=== PATIENT | male | born 1975 | race Caucasian/White ===

== ENCOUNTER 2019-03-20 11:19 | Emergency (ER) | payer MEDICAID ==
[2019-03-20] MEDS: LIDOCAINE 1% (MDV) 20 ML INJ SC (12:18)
[2019-03-20] MEDS: DIPHTH/TET/ACEL PERTUSS (ADULT) 0.5 ML VIAL IM* (12:19)
[2019-03-20] MEDS: KETOROLAC 60 MG INJ IM (12:32)
[2019-03-20] MEDS: BACITRACIN 0.5%/ZINC 28.35 GM OINT TOP (14:31)
== END 2019-03-20 14:35 | disposition home or self-care (01) ==
LOC: FTE 14:35
DX: S61.412A Laceration without foreign body of left hand, initial encounter (principal); W26.8XXA Contact with other sharp object(s), not elsewhere classified, initial encounter; Y92.9 Unspecified place or not applicable
CPT/HCPCS: 12002; 90471; 90715; 96372; 99284-25

== ENCOUNTER 2019-03-22 16:21 | Emergency (ER) | payer MEDICAID | END 2019-03-22 17:26 | disposition home or self-care (01) | LOC: FTE 16:21 | DX: Z48.00 Encounter for change or removal of nonsurgical wound dressing (principal) | CPT/HCPCS: 99281; Z7502 ==

== ENCOUNTER 2019-03-28 08:26 | Emergency (ER) | payer MEDICAID | END 2019-03-28 09:47 | disposition home or self-care (01) | LOC: FTE 09:47 | DX: Z48.02 Encounter for removal of sutures (principal) | CPT/HCPCS: 99281 ==

== ENCOUNTER 2019-03-31 14:07 | Emergency (ER) | payer MEDICAID | END 2019-03-31 16:03 | disposition home or self-care (01) | LOC: FTE 14:07 | DX: S61.012D Laceration without foreign body of left thumb without damage to nail, subsequent encounter (principal); W26.9XXD Contact with unspecified sharp object(s), subsequent encounter; Y92.9 Unspecified place or not applicable | CPT/HCPCS: 29125; 99282-25 ==